=== PATIENT | female | born 1950 | race Caucasian/White ===

== ENCOUNTER 2022-03-15 21:22 | Emergency (ER) | payer BC, OTHER ==
[~2022-03-15] VITALS: Ht 157.5 cm; Wt 71.7 kg
[~2022-03-15 21:22] MED LIST: FAMO-90 PO; HYDR-4004 PO; METO50TE2 PO; SYN.025 PO
[2022-03-15 21:36] VITALS: BP 167/74
== END 2022-03-15 23:40 | disposition left against medical advice (07) ==
LOC: MED 21:22
DX: I10 Essential (primary) hypertension (principal); Z53.21 Procedure and treatment not carried out due to patient leaving prior to being seen by health care provider

== ENCOUNTER 2023-01-14 18:36 | Emergency (ER) | payer OTHER ==
[~2023-01-14] VITALS: Ht 157.5 cm; Wt 68.0 kg
[2023-01-14 18:45] VITALS: BP 174/91; PULSE 69; RESP 16; TEMP 97.8; O2SAT 99
--- NOTE | 2023-01-14 19:26 | NUR ---
PT AMBULATED TO BED 12
[2023-01-14 19:30] VITALS: TEMP 97.8
[2023-01-14 19:38] LABS: BASOPHILS % (AUTO) 0.3 % (0.0-2.0); EOSINOPHILS # (AUTO) 0.1 K/uL (0-0.4); EOSINOPHILS % (AUTO) 0.9 % (0.0-4.0); HEMATOCRIT 41.7 % (36-48); HEMOGLOBIN 13.8 g/dL (12.0-16.0); LYMPHOCYTES # (AUTO) 2.4 K/uL (2.5-16.5); LYMPHOCYTES % (AUTO) 19.1 % (20.5-51.1); MEAN CORPUSCULAR HEMOGLOBIN 32 pg (27-31); MEAN CORPUSCULAR HGB CONC 33 g/dL (33-37); MEAN CORPUSCULAR VOLUME 95.8 fL (80-94); MONOCYTES # (AUTO) 0.9 K/uL (0.8-1.0); MONOCYTES % (AUTO) 7.3 % (1.7-9.3); NEUTROPHILS % (AUTO) 72.4 % (42.2-75.2); PLATELET COUNT (AUTO) 267 K/uL (140-450); RED BLOOD CELL COUNT(AUTO) 4.36 MIL/uL (4.20-5.40); RED CELL DISTRIBUTION WIDTH 13.6 % (11.6-13.7); WHITE BLOOD COUNT (AUTO) 12.4 K/uL (4.8-10.8)
[2023-01-14 19:44] LABS: PROTHROMBIN TIME 10.2 secs (10.8-13.4)
[2023-01-14 19:45] LABS: ALBUMIN 3.6 g/dL (3.4-5.0); ANION GAP 13.7 (8-16); ASPARTATE AMINOTRANSFERASE 19 U/L (15-37); CARBON DIOXIDE 28.2 mmol/L (21-32); CHLORIDE 104 mmol/L (98-107); CREATININE 0.8 mg/dL (0.6-1.3); GLUCOSE 93 mg/dL (74-106); POTASSIUM 3.9 mmol/L (3.5-5.1); SODIUM SERUM 142 mmol/L (136-145); TOTAL BILIRUBIN 0.4 mg/dL (0.0-1.0); UREA NITROGEN, BLOOD 20 mg/dL (7-18)
--- NOTE | 2023-01-14 20:00 | NUR ---
DR. IVERSON EXAMINING PATIENT AT BEDSIDE.
[2023-01-14] MEDS ORDERED: KETOROLAC 15 MG/ML VIAL IVP ONE (20:45)
[2023-01-14] MEDS ORDERED: DICYCLOMINE HCL LIQUID 20 MG, ALUMINUM HYD/MAG/SIMETHICONE 30 ML, LIDOCAINE VISCOUS 2% ... PO ONE ×3 (20:45)
[2023-01-14] MEDS ORDERED: PANTOPRAZOLE 40 MG TABEC PO ONE (20:45)
[2023-01-14] MEDS ORDERED: ALUMINUM HYD/MAG/SIMETHICONE 30 ML UDC ONE (21:07)
[2023-01-14] MEDS ORDERED: DICYCLOMINE HCL LIQUID 10 MG/5 ML UDC ONE (21:08)
[2023-01-14 21:23] LABS: BILIRUBIN,URINE NEGATIVE (NEGATIVE); BLOOD, URINE TRACE-I (NEGATIVE); COLOR,URINE YELLOW (YELLOW); LEUKOCYTE ESTERASE ,URINE TRACE (NEGATIVE); NITRITE, URINE NEGATIVE (NEGATIVE); UGLUCOSE NEGATIVE (NEGATIVE)
[2023-01-14 21:33] LABS: APPEARANCE,URINE HAZY (CLEAR)
[2023-01-14 22:02] LABS: RBC,URINE 0-5 /HPF (0-5)
[2023-01-14] MEDS ORDERED: SUCR1TAB35 PO (22:08)
[2023-01-14] MEDS ORDERED: OMEP20EC11 PO (22:08)
[2023-01-14] MEDS ORDERED: cephALEXin 500 MG CAP PO ONE (22:10)
[2023-01-14] MEDS ORDERED: CEPH-588 PO (22:14)
--- NOTE | 2023-01-14 22:25 | NUR ---
Patient discharged with v/s stable. Written and verbal after care instructions given and explained. Patient alert, oriented and verbalized understanding of instructions. Ambulatory with steady gait. All questions addressed prior to discharge. ID band removed. Patient advised to follow up with PMD. Rx of Keflex, Prilosec, Carafate given. Patient educated on indication of medication including possible reaction and side effects. Opportunity to ask questions provided and answered.
[2023-01-14 22:28] VITALS: BP 132/46; PULSE 60; RESP 18; O2SAT 98
== END 2023-01-14 22:25 | disposition home or self-care (01) ==
LOC: MED 18:36
DX: K21.9 Gastro-esophageal reflux disease without esophagitis (principal); R07.89 Other chest pain; I10 Essential (primary) hypertension; E03.9 Hypothyroidism, unspecified; Z79.899 Other long term (current) drug therapy
CPT/HCPCS: 36415; 71045; 80053; 81001; 83880; 84484; 85025; 85610; 85730; 93005; 99285; J1885

== ENCOUNTER 2023-03-09 15:52 | Emergency (ER) | payer OTHER ==
[~2023-03-09] VITALS: Ht 157.5 cm; Wt 72.1 kg
[~2023-03-09 15:52] MED LIST changes: +CEPH-588 PO; +OMEP20EC11 PO; +SUCR1TAB35 PO
[2023-03-09 16:05] VITALS: BP 188/79; PULSE 54; RESP 18; TEMP 96.4; O2SAT 96
[2023-03-09 16:41] LABS: BASOPHILS % (AUTO) 0.3 % (0.0-2.0); EOSINOPHILS # (AUTO) 0.1 K/uL (0-0.4); EOSINOPHILS % (AUTO) 1.4 % (0.0-4.0); HEMATOCRIT 41.7 % (36-48); HEMOGLOBIN 13.7 g/dL (12.0-16.0); LYMPHOCYTES % (AUTO) 23.3 % (20.5-51.1); MEAN CORPUSCULAR HEMOGLOBIN 32 pg (27-31); MEAN CORPUSCULAR HGB CONC 33 g/dL (33-37); MEAN CORPUSCULAR VOLUME 96.3 fL (80-94); MONOCYTES # (AUTO) 0.7 K/uL (0.8-1.0); MONOCYTES % (AUTO) 8.3 % (1.7-9.3); NEUTROPHILS # (AUTO) 5.7 K/uL (1.8-7.7); NEUTROPHILS % (AUTO) 66.7 % (42.2-75.2); PLATELET COUNT (AUTO) 223 K/uL (140-450); RED BLOOD CELL COUNT(AUTO) 4.32 MIL/uL (4.20-5.40); RED CELL DISTRIBUTION WIDTH 14.1 % (11.6-13.7); WHITE BLOOD COUNT (AUTO) 8.6 K/uL (4.8-10.8)
[2023-03-09 16:46] VITALS: O2SAT 96
[2023-03-09 17:06] LABS: ALANINE AMINOTRANSFERASE 28 U/L (12-78); ALBUMIN 3.2 g/dL (3.4-5.0); ALKALINE PHOSPHATASE 104 U/L (50-136); ANION GAP 10.5 (8-16); ASPARTATE AMINOTRANSFERASE 20 U/L (15-37); CALCIUM 8.5 mg/dL (8.5-10.1); CARBON DIOXIDE 29.9 mmol/L (21-32); CHLORIDE 109 mmol/L (98-107); GLUCOSE 118 mg/dL (74-106); POTASSIUM 4.4 mmol/L (3.5-5.1); SODIUM SERUM 145 mmol/L (136-145); TOTAL BILIRUBIN 0.3 mg/dL (0.0-1.0); TOTAL PROTEIN, SERUM 6.5 g/dL (6.4-8.2); UREA NITROGEN, BLOOD 15 mg/dL (7-18)
== END 2023-03-09 20:25 | disposition home or self-care (01) ==
LOC: MED 15:52
DX: I27.82 Chronic pulmonary embolism (principal); M54.50 Low back pain, unspecified; I10 Essential (primary) hypertension; E03.9 Hypothyroidism, unspecified; Z79.899 Other long term (current) drug therapy
CPT/HCPCS: 36415; 71045; 71275; 80053; 83880; 84484; 85025; 85379; 93005; 99285; Q9967

== ENCOUNTER 2023-07-10 11:25 | Observation (INO) | payer OTHER ==
[~2023-07-10] VITALS: Ht 157.5 cm; Wt 69.9 kg
[2023-07-10 11:43] VITALS: BP 152/76; PULSE 81; RESP 14; TEMP 97.8; O2SAT 98
[2023-07-10] MEDS ORDERED: NITROGLYCERIN 0.4 MG TAB SL ONE ×3 (12:10→14:40)
[2023-07-10 12:51] LABS: BLOOD GAS BASE EXCESS 0.9 mmol/L (-2.0-2.0); BLOOD GAS HCO3 23.7 mmol/L (22-26); BLOOD GAS PCO2 32.8 mmHg (35-45); BLOOD GAS PH 7.476 (7.35-7.45); BLOOD GAS PO2 76.1 mmHg (75-100)
[2023-07-10 12:52] LABS: FRACTIONATED INSPIRED OXYGEN 0.21 % (0.21-100.00)
[2023-07-10 13:03] LABS: BASOPHILS % (AUTO) 0.2 % (0.0-2.0); EOSINOPHILS # (AUTO) 0.1 K/uL (0-0.4); EOSINOPHILS % (AUTO) 0.8 % (0.0-4.0); HEMATOCRIT 44.1 % (36-48); LYMPHOCYTES # (AUTO) 1.9 K/uL (2.5-16.5); LYMPHOCYTES % (AUTO) 20.3 % (20.5-51.1); MEAN CORPUSCULAR HEMOGLOBIN 33 pg (27-31); MEAN CORPUSCULAR HGB CONC 34 g/dL (33-37); MEAN CORPUSCULAR VOLUME 95.8 fL (80-94); MONOCYTES # (AUTO) 0.8 K/uL (0.8-1.0); MONOCYTES % (AUTO) 8.1 % (1.7-9.3); NEUTROPHILS # (AUTO) 6.6 K/uL (1.8-7.7); NEUTROPHILS % (AUTO) 70.6 % (42.2-75.2); PLATELET COUNT (AUTO) 254 K/uL (140-450); RED CELL DISTRIBUTION WIDTH 14.4 % (11.6-13.7); WHITE BLOOD COUNT (AUTO) 9.4 K/uL (4.8-10.8)
[2023-07-10 13:21] LABS: INR 1.04 (0.8-1.2); PARTIAL THROMBOPLASTIN TIME 24.7 secs (22-35.6); PROTHROMBIN TIME 10.9 secs (10.8-13.4)
[2023-07-10 13:48] LABS: ANION GAP 16.2 (8-16); CALCIUM 9.5 mg/dL (8.5-10.1); CARBON DIOXIDE 24.9 mmol/L (21-32); CHLORIDE 105 mmol/L (98-107); CREATININE 0.9 mg/dL (0.6-1.3); GLUCOSE 126 mg/dL (74-106); POTASSIUM 3.1 mmol/L (3.5-5.1); SODIUM SERUM 143 mmol/L (136-145); UREA NITROGEN, BLOOD 19 mg/dL (7-18)
[2023-07-10] MEDS ORDERED: LOSA-272 PO (14:47)
[2023-07-10] MEDS ORDERED: CHLO25TA33 PO (14:47)
[2023-07-10] MEDS ORDERED: SYN.05 PO (14:47)
[2023-07-10] MEDS ORDERED: APR10 PO (14:47)
[2023-07-10] MEDS ORDERED: APIX5TAB PO (14:47)
[2023-07-10] MEDS ORDERED: METO-625 PO (14:47)
[2023-07-10] MEDS ORDERED: ONDANSETRON 4 MG/2 ML VIAL IVP PRN (15:20)
[2023-07-10] MEDS ORDERED: MORPHINE SULFATE 4 MG/ML SYR IVP PRN (15:20)
[2023-07-10] MEDS ORDERED: ACETAMINOPHEN 325 MG TAB PO PRN (15:20)
[2023-07-10] MEDS ORDERED: KETOROLAC 30 MG/ML VIAL IVP PRN (15:30)
[2023-07-10] MEDS ORDERED: cefTRIAXone 1,000 MG VIAL ONE (16:32)
[2023-07-10 20:35] VITALS: BP 184/76; PULSE 87; RESP 18; TEMP 97.7; O2SAT 96
[2023-07-10] MEDS: APIXABAN 2.5 MG TAB PO SCH (20:57)
[2023-07-10] MEDS ORDERED: METOPROLOL 50 MG TAB PO SCH (21:00)
[2023-07-10] MEDS ORDERED: hydrALAZINE 25 MG TAB PO PRN (21:35)
[2023-07-10 21:39] VITALS: PULSE 82; RESP 20; O2SAT 96
[2023-07-10 22:15] VITALS: PULSE 87
[2023-07-11] VITALS (10 sets, daily range): BP systolic 120–153; BP diastolic 60–77; PULSE 56–96; RESP 19–20; TEMP 97.4–98.5; O2SAT 94–98
[2023-07-11 05:14] LABS: BASOPHILS % (AUTO) 0.5 % (0.0-2.0); EOSINOPHILS # (AUTO) 0.1 K/uL (0-0.4); EOSINOPHILS % (AUTO) 1.6 % (0.0-4.0); HEMATOCRIT 41.9 % (36-48); HEMOGLOBIN 14.3 g/dL (12.0-16.0); LYMPHOCYTES # (AUTO) 2.9 K/uL (2.5-16.5); LYMPHOCYTES % (AUTO) 33.8 % (20.5-51.1); MEAN CORPUSCULAR HEMOGLOBIN 33 pg (27-31); MEAN CORPUSCULAR HGB CONC 34 g/dL (33-37); MEAN CORPUSCULAR VOLUME 95.9 fL (80-94); MONOCYTES # (AUTO) 0.8 K/uL (0.8-1.0); MONOCYTES % (AUTO) 9.8 % (1.7-9.3); NEUTROPHILS # (AUTO) 4.6 K/uL (1.8-7.7); NEUTROPHILS % (AUTO) 54.3 % (42.2-75.2); PLATELET COUNT (AUTO) 236 K/uL (140-450); RED BLOOD CELL COUNT(AUTO) 4.37 MIL/uL (4.20-5.40); RED CELL DISTRIBUTION WIDTH 14.6 % (11.6-13.7); WHITE BLOOD COUNT (AUTO) 8.5 K/uL (4.8-10.8)
[2023-07-11 05:28] LABS: ANION GAP 14.3 (8-16); CARBON DIOXIDE 26.3 mmol/L (21-32); CHLORIDE 107 mmol/L (98-107); GLUCOSE 105 mg/dL (74-106); POTASSIUM 3.6 mmol/L (3.5-5.1); SODIUM SERUM 144 mmol/L (136-145); UREA NITROGEN, BLOOD 21 mg/dL (7-18)
[2023-07-11] MEDS ORDERED: LEVOTHYROXINE 0.025 MG TAB PO SCH (06:30)
[2023-07-11] MEDS: hydrALAZINE 25 MG TAB PO SCH ×2 (08:58→13:06)
[2023-07-11] MEDS ORDERED: LOSARTAN 50 MG TAB PO SCH (09:00)
[2023-07-11] MEDS ORDERED: FAMOTIDINE 20 MG TAB PO SCH (09:00)
[2023-07-11] MEDS ORDERED: DOCUSATE SODIUM 100 MG GELCAP PO SCH (09:00)
[2023-07-11] MEDS: APIXABAN 2.5 MG TAB PO SCH (09:01)
[2023-07-11] MEDS: HYDROcodone/APAP 5/325 MG 1 TAB TAB PO PRN ×2 (09:02→09:05)
[2023-07-11] MEDS ORDERED: MELO-174 PO (11:49)
== END 2023-07-11 14:05 | disposition home or self-care (01) ==
LOC: MED 11:25 → MTU 15:20
PROVIDERS: ADMIT Student in an Organized Health Care Education/Training Program; ATTEND Student in an Organized Health Care Education/Training Program
DX: R07.89 Other chest pain (principal); I10 Essential (primary) hypertension; E11.9 Type 2 diabetes mellitus without complications; E03.9 Hypothyroidism, unspecified; E78.5 Hyperlipidemia, unspecified; E87.6 Hypokalemia; R09.02 Hypoxemia; Z86.711 Personal history of pulmonary embolism; Z98.891 History of uterine scar from previous surgery; Z79.899 Other long term (current) drug therapy; Z98.890 Other specified postprocedural states
CPT/HCPCS: 36415; 71045; 71275; 80048; 83735; 83880; 84484; 85025; 85379; 85610; 85730; 87081; 93005; 96365; 99285; G0378; J0696; Q9967; J7060